=== PATIENT | female | born 1990 | race Two or more races ===

== ENCOUNTER 2020-10-06 09:09 | Emergency (ER) | payer OTHER ==
[~2020-10-06] VITALS: Ht 152.4 cm; Wt 81.6 kg
[2020-10-06] MEDS ORDERED: SODIUM CHLORIDE 0.9% 1,000 ML IV ONE ×2 (09:30)
[2020-10-06 09:54] LABS: Basophils # (auto) 0.1 10 ^3/uL (0-0.2); Basophils % (auto) 1.3 % (0.0-2.0); Eosinophils # (auto) 0.3 10 ^3/uL (0-0.8); Eosinophils % (auto) 3.2 % (0.0-7.0); Hematocrit 42.3 % (36.0-46.0); Hemoglobin 14.4 g/dL (12.2-16.2); Lymphocytes # (auto) 2.9 10 ^3/uL (0.4-5.4); Lymphocytes % (auto) 30.9 % (10.0-50.0); Mean Corpuscular Hemoglobin 29.1 pg (28.0-32.0); Mean Corpuscular Volume 85.5 fL (80.0-100.0); Monocytes # (auto) 0.5 10 ^3/uL (0-1.3); Neutrophils # (auto) 5.6 10 ^3/uL (1.6-8.6); Neutrophils % (auto) 59.6 % (37.0-80.0); Red Blood Cells 4.94 10^6/uL (4.0-5.20); Red Cell Distribution Width 12.6 % (11.8-14.3); White Blood Cell 9.4 10^3/uL (4.4-10.8)
[2020-10-06 10:17] LABS: Albumin 3.6 g/dL (3.4-5.0); Calcium 8.7 mg/dL (8.5-10.1)
[2020-10-06 10:20] LABS: BUN/Creatinine Ratio 16.9; Bilirubin, Total 0.6 mg/dL (0.2-1.0); Total Protein 7.4 g/dL (6.4-8.2)
[2020-10-06 10:29] LABS: Urine Bacteria FEW /hpf (None Seen); Urine Blood TRACE /uL (Negative); Urine Mucus FEW (None Seen); Urine Specific Gravity 1.021 (1.001-1.035); Urine WBC 8 /hpf (0 - 5)
[2020-10-06 12:50] VITALS: BP 129/75
== END 2020-10-06 13:06 | disposition home or self-care (01) ==
LOC: ER 09:09
DX: N39.0 Urinary tract infection, site not specified (principal); F17.210 Nicotine dependence, cigarettes, uncomplicated; Z90.49 Acquired absence of other specified parts of digestive tract
CPT/HCPCS: 36415; 74176; 80053; 81001; 83690; 85025

== ENCOUNTER 2022-02-13 17:08 | Emergency (ER) | payer OTHER, MEDICAID ==
[~2022-02-13] VITALS: Ht 152.4 cm; Wt 87.3 kg
[2022-02-13 18:42] LABS: Basophils # (auto) 0.1 10 ^3/uL (0-0.2); Basophils % (auto) 0.7 % (0.0-2.0); Eosinophils # (auto) 0.2 10 ^3/uL (0-0.8); Eosinophils % (auto) 2.1 % (0.0-7.0); Hematocrit 38.8 % (36.0-46.0); Hemoglobin 13.1 g/dL (12.2-16.2); Lymphocytes # (auto) 3.8 10 ^3/uL (0.4-5.4); Lymphocytes % (auto) 32.3 % (10.0-50.0); Mean Corpuscular Hemoglobin 28.1 pg (28.0-32.0); Mean Corpuscular Hgb Conc. 33.6 g/dL (32.0-36.0); Mean Corpuscular Volume 83.4 fL (80.0-100.0); Monocytes # (auto) 0.6 10 ^3/uL (0-1.3); Monocytes % (auto) 5.4 % (0.0-12.0); Neutrophils # (auto) 7.1 10 ^3/uL (1.6-8.6); Neutrophils % (auto) 59.5 % (37.0-80.0); Red Blood Cells 4.65 10^6/uL (4.0-5.20); Red Cell Distribution Width 13.5 % (11.8-14.3); White Blood Cell 11.9 10^3/uL (4.4-10.8)
[2022-02-13 19:01] LABS: Albumin 3.5 g/dL (3.4-5.0); BUN/Creatinine Ratio 15.7; Calcium 8.1 mg/dL (8.5-10.1); Magnesium 1.9 mg/dL (1.6-2.6); Potassium 3.8 mmol/L (3.5-5.1)
[2022-02-13 19:03] LABS: Bilirubin, Total 0.6 mg/dL (0.2-1.0); Total Protein 6.5 g/dL (6.4-8.2)
[2022-02-13] MEDS ORDERED: OXYCODONE W/ ACETAMINOPHEN 5/325MG TABLET PO ONE (23:30)
[2022-02-13] MEDS ORDERED: ONDANSETRON ODT 4 MG TAB PO ONE (23:30)
[2022-02-14 00:01] LABS: Alcohol, Urine < 3.0 mg/dL (0-10); Amphetamine Screen, Urine NEGATIVE (NEGATIVE); Barbiturate Scree,Urine NEGATIVE (NEGATIVE); Benzodiazephine Screen, Urine NEGATIVE (NEGATIVE); Cocaine Screen, Urine NEGATIVE (NEGATIVE); Opiate Scree,Urine NEGATIVE (NEGATIVE); Phencyclidine Screen, Urine NEGATIVE (NEGATIVE)
[2022-02-14 00:09] LABS: Cannabinoid Screen, Urine POSITIVE (NEGATIVE)
[2022-02-14 00:12] LABS: Urine Bacteria NONE SEEN /hpf (None Seen); Urine Blood Negative /uL (Negative); Urine Mucus FEW (None Seen); Urine Specific Gravity 1.031 (1.001-1.035); Urine WBC 5 /hpf (0 - 5)
[2022-02-14] MEDS ORDERED: ONDANSETRON HCL 4 MG/2 ML VIAL IV ONE ×2 (05:00→09:45)
[2022-02-14] MEDS ORDERED: HYDROmorphone HCL 2 MG/ML VL/or syr IV ONE ×2 (05:00→09:45)
[2022-02-14] MEDS ORDERED: GADOTERATE MEG 10 MMOL/20ml INJ (0.5MMOL/ml) IV ONE (10:04)
[2022-02-14] MEDS ORDERED: DICL50TA2 PO (19:24)
[2022-02-14] MEDS ORDERED: HYDR-4902 PO (19:24)
[2022-02-14 19:42] VITALS: BP 112/69
== END 2022-02-14 19:55 | disposition home or self-care (01) ==
LOC: ER 17:12
DX: G45.9 Transient cerebral ischemic attack, unspecified (principal); R51.9 Headache, unspecified; F17.210 Nicotine dependence, cigarettes, uncomplicated; Z90.49 Acquired absence of other specified parts of digestive tract; Z20.822 Contact with and (suspected) exposure to COVID-19
CPT/HCPCS: 36415; 70450; 70553; 71045; 80053; 80307; 81001; 83735; 84484; 85025; 87426; 93005; 96374; 96375; 96376; 99285; A9575; J1170; J2405; Q0162

== ENCOUNTER 2024-04-13 22:23 | Emergency (ER) | payer OTHER, MEDICAID ==
[~2024-04-13] VITALS: Ht 152.4 cm; Wt 67.7 kg
[~2024-04-13 22:23] MED LIST: DICL50TA2 PO; HYDR-4902 PO
[2024-04-13 23:03] LABS: Basophils # (auto) 0 10 ^3/uL (0-0.2); Basophils % (auto) 0.5 % (0.0-2.0); Eosinophils # (auto) 0.2 10 ^3/uL (0-0.8); Eosinophils % (auto) 2.8 % (0.0-7.0); Hemoglobin 12.6 g/dL (12.2-16.2); Lymphocytes # (auto) 3.2 10 ^3/uL (0.4-5.4); Lymphocytes % (auto) 47.6 % (10.0-50.0); Mean Corpuscular Hemoglobin 29.1 pg (28.0-32.0); Mean Corpuscular Hgb Conc. 34.2 g/dL (32.0-36.0); Mean Corpuscular Volume 85.2 fL (80.0-100.0); Monocytes # (auto) 0.7 10 ^3/uL (0-1.3); Monocytes % (auto) 10.1 % (0.0-12.0); Neutrophils # (auto) 2.6 10 ^3/uL (1.6-8.6); Nucleated Red Blood Cells % 0.1 %; Platelet Count (auto) 285 10^3/uL (140-450); Red Blood Cells 4.34 10^6/uL (4.0-5.20); Red Cell Distribution Width 14.9 % (11.8-14.3); White Blood Cell 6.8 10^3/uL (4.4-10.8)
[2024-04-13 23:12] LABS: Chloride 107 mmol/L (98-107); Potassium 2.9 mmol/L (3.5-5.1); Sodium 141 mmol/L (136-145)
[2024-04-13 23:14] LABS: Anion Gap 9 (5-15); Calcium 9.3 mg/dL (8.7-10.4); Carbon Dioxide 25 mmol/L (20-31)
[2024-04-13 23:18] LABS: INR 1.03 (0.9-1.15); Partial Thromboplastin Time 28.2 SEC (24.5-34.5); Prothrombin Time 10.9 sec (9.3-11.8)
[2024-04-13 23:19] LABS: BUN/Creatinine Ratio 13.8 (10.0-20.0); Blood Urea Nitrogen 8 mg/dL (9-23); Glucose 91 mg/dL (74-106)
--- NOTE | 2024-04-13 23:21 | DVH ---
CHEST RADIOGRAPH Indication: CP Technique: Single frontal view of the chest was obtained COMPARISON: CHEST XRAY 1 VIEW on DOS: 02/13/22 FINDINGS: Lines and Tubes: None Lungs: Clear Pleura: No effusion. No pneumothorax. Cardiomediastinal contours: Unremarkable Bones: Unremarkable IMPRESSION: 1. No acute disease.
--- NOTE | 2024-04-14 00:51 | ED.PDOC ---
History of Present Illness HPI Comments 33 y/o F, with a Hx of cholecystectomy, , gastric bypass Sx and tobacco and EtOH use, presents with c/o non-radiating, chest pressure, shortness of breath, dizziness, lightheadedness, fatigue, hypotension and bradycardia for 1 week. Patient states she was seen at urgent care for these symptoms today and was referred to the emergency room due to bradycardia as low as 50. Patient states she has been recording her heart rate at home and at has been in the low 50s consistently. She also notes a severe headache and states she has a history of a brain lesion incidentally found on imaging a year ago. She denies any syncope, vision changes or focal weakness. Chief Complaint: Chest Pain Time Seen by MD: 00:20 Primary Care Provider: Dr. Dougherty Reviewed Notes: Nurses Notes, Medications, Allergies Allergies: Coded Allergies: NO KNOWN ALLERGIES (Unverified , 10/06/20) Home Meds Active Scripts Diclofenac Potassium (Diclofenac Potassium) 50 Mg Tab, 1 TAB PO TIDP for 10 Days, #30 TAB Prov:JESSY CLAUDIO MD 02/14/22 Hydrocodone-Acetaminophen (Hydrocodone Bitartrate/AC 5-325 mg) 1 Tab Tab, 1 TAB PO TID for 5 Days, #15 TAB Prov:JESSY CLAUDIO MD 02/14/22 Information Source: Patient Mode of Arrival: Ambulatory Severity: Moderate Timing: Weeks Duration: Since onset Prehospital treatment: None Past Medical History PAST MEDICAL HISTORY: Denies Surgical History: Cholecystectomy, Surgical History (Other): gastric bypass Sx GROUND SUPPORT EQUIPMENT FITTER History: No Pertinent GROUND SUPPORT EQUIPMENT FITTER History Family History Family History: Reviewed,noncontributory to illness Social History Smoker: Cigarettes Alcohol: Occasionally Drugs: Denies Drug Use Lives In: Home Constitutional: reports: fatigue; denies: chills, diaphoresis, fever, malaise, sweats, weakness, others EENTM: denies: blurred vision, double vision, ear bleeding, ear discharge, ear drainage, ear pain, ear ringing, eye pain, eye redness, hearing loss, mouth pain, mouth swelling, nasal discharge, nose bleeding, nose congestion, nose pain, photophobia, tearing, throat pain, throat swelling, voice changes, others Respiratory: reports: shortness of breath; denies: cough, hemoptysis, orthopnea, SOB at rest, SOB with excertion, stridor, wheezing, others Cardiovascular: reports: chest pain, irregular heart beat, lightheadedness, others (hypotension ) Gastrointestinal: denies: abdomen distended, abdominal pain, blood streaked bowels, constipated, diarrhea, dysphagia, difficulty swallowing, hematemesis, melena, nausea, poor appetite, poor fluid intake, rectal bleeding, rectal pain, vomiting, others Genitourinary: denies: abnormal vagina bleeding, burning, dyspareunia, dysuria, flank pain, frequency, hematuria, incontinence, pain, , vagina discharge, urgency, others Neurological: denies: dizziness, fainting, headache, left sided numbness, left sided weakness, numbness, paresthesia, pre-existing deficit, right sided numbness, right sided weakness, seizure, speech problems, tingling, tremors, we akness, others Musculoskeletal: denies: back pain, gout, joint pain, joint swelling, muscle pain, muscle stiffness, neck pain, others Integumetry: denies: bruises, change in color, change in hair/nails, dryness, laceration, lesions, lumps, rash, wounds, others Allergic/Immunocompromised: denies: Difficulty Healing, Frequent Infections, Hives, Itching, others Hematologic/Lymphatic: denies: anemia, blood clots, easy bleeding, easy bruising, swollen glands, others Endocrine: denies: excessive hunger, excessive sweating, excessive thirst, excessive urination, flushing, intolerance to cold, intolerance to heat, unexplained weight gain, unexplained weight loss, others Psychiatric: denies: anxiety, bipolar disorder, depression, hopeless, panic disorder, schizophrenia, sleepless, suicidal, others All Other Systems: Reviewed and Negative Physical Exam General Appearance: No Apparent Distress HEENT: Normal ENT Inspection, PERRL/EOMI Neck: Full Range of Motion, Normal Inspection Respiratory: Lungs Clear, No Accessory Muscle Use, No Respiratory Distress, Normal Breath Sounds Cardiovascular: Bradycardia, No Edema, No JVD Breast Exam: Deferred Gastrointestinal: Non Tender, Soft Genitalia: Deferred Pelvic: Deferred Rectal: Deferred Extremities: Normal inspection, Normal range of motion, Non-tender, No pedal edema Neurologic: Alert, No Motor Deficits, Normal Affect, Normal Mood, No Sensory Deficits Cerebellar Function: NOT DONE Reflexes: NOT DONE Skin: Dry, Normal Color, Warm Lymphatic: NOT DONE Was a procedure done? Was a procedure done?: No EKG EKG : Comments Sinus bradycardia, rate 49, normal intervals, normal axis, normal QRS, nonspecific T change. Differential Dx Considerations may include: ACS, TX, arrhythmia, hypovolemia, anemia, electrolyte imbalance, tension headache, migraine headache, vascular headache, metabolic headache, intracranial lesion, among others X-Ray, Labs, Meds, VS Vital Signs Date Time Temp Pulse Resp B/P (MAP) Pulse Ox O2 Delivery O2 Flow Rate FiO2 04/14/24 05:00 98.0 54 16 114/76 (89) 100 98.0 04/13/24 22:34 49 04/13/24 22:28 97.9 49 20 131/84 (100) 100 Lab Test 04/13/24 23:43 04/13/24 22:40 Range/Units Troponin I High Sensitivity < 3 L < 3 L </=34 ng/L White Blood Count 6.8 4.4-10.8 10^3/uL Red Blood Count 4.34 4.0-5.20 10^6/uL Hemoglobin 12.6 12.2-16.2 g/dL Hematocrit 37.0 36.0-46.0 % Mean Corpuscular Volume 85.2 80.0-100.0 fL Mean Corpuscular Hemoglobin 29.1 28.0-32.0 pg Mean Corpuscular Hemoglobin Concent 34.2 32.0-36.0 g/dL Red Cell Distribution Width 14.9 H 11.8-14.3 % Platelet Count 285 140-450 10^3/uL Mean Platelet Volume 7.0 6.9-10.8 fL Neutrophils (%) (Auto) 39.0 37.0-80.0 % Lymphocytes (%) (Auto) 47.6 10.0-50.0 % Monocytes (%) (Auto) 10.1 0.0-12.0 % Eosinophils (%) (Auto) 2.8 0.0-7.0 % Basophils (%) (Auto) 0.5 0.0-2.0 % Neutrophils # (Auto) 2.6 1.6-8.6 10 ^3/uL Lymphocytes # (Auto) 3.2 0.4-5.4 10 ^3/uL Monocytes # (Auto) 0.7 0-1.3 10 ^3/uL Eosinophils # (Auto) 0.2 0-0.8 10 ^3/uL Basophils # (Auto) 0 0-0.2 10 ^3/uL Nucleated Red Blood Cells 0.1 % Prothrombin Time 10.9 9.3-11.8 sec Prothrombin Time INR 1.03 0.9-1.15 Activated Partial Thromboplast Time 28.2 24.5-34.5 SEC Sodium Level 141 136-145 mmol/L Potassium Level 2.9 L 3.5-5.1 mmol/L Chloride Level 107 98-107 mmol/L Carbon Dioxide Level 25 20-31 mmol/L Anion Gap 9 5-15 Blood Urea Nitrogen 8 L 9-23 mg/dL Creatinine 0.58 0.550-1.02 mg/dL Glomerular Filtration Rate Calc 121 >90 mL/min BUN/Creatinine Ratio 13.8 10.0-20.0 Serum Glucose 91 74-106 mg/dL Calcium Level 9.3 8.7-10.4 mg/dL Magnesium Level 2.0 1.6-2.6 mg/dL B-Type Natriuretic Peptide 32.51 0-100 pg/mL [place] [address] Ph: [phone] DIAGNOSTIC IMAGING Diagnostic Imaging Report : [id number] Signed PATIENT: EDWARDO MEDINA ACCT: [id number] UNIT: [id number] : 1990 LOC: ER ROOM / BED: / AGE / SEX: 33 / F ADM STATUS: REG ER SERVICE 0050 ORDERING PHYSICIAN: CATHERINE LEE MD PROCEDURE(s): HWOCT - HEAD WITHOUT CONTRAST REASON: headache, gen weak, presyncope ORDER NUMBER(s): [id number], ACCESSION NUMBER(s): [id number] EXAM: CT HEAD WITHOUT CONTRAST INDICATION: headache, gen weak, presyncope TECHNIQUE: CT of the head without intravenous contrast. Radiation Dose : 1. Head: CT Dose: CTDI volume is 53.92 mGy. Dose-length product is 756.59 mGy*cm The dose indicators for CT are the volume Computed Tomography (CT) Dose Index (CTDIvol) and the Dose Length Product (DLP), and are measured in units of mGy and mGy-cm, respectively. These indicators are not patient dose, but values generated from the CT scanner acquisition factors. The report includes radiation exposure data for exposures received during this examination. COMPARISON: BRAIN HEAD WO W CONTRAST on DOS: 02/14/22, HEAD WITHOUT CONTRAST on DOS: 02/13/22, CT ABD PELVIS WO CONTRAST on DOS: 10/06/20 FINDINGS: 1.7 cm ovoid shaped masslike lesion is seen in the medial left frontal brain which may reflect mass or intraparenchymal hematoma. No significant mass effect. No midline shift. The ventricles, sulci and cisterns are age appropriate. The szymanski-white differentiation is intact. Patchy periventricular and subcortical white matter hypoattenuation is nonspecific but may be related to small vessel ischemic disease. The visualized paranasal sinuses and mastoid air cells are clear. The surrounding soft tissues and osseous structures are unremarkable. IMPRESSION: 1. 1.7 cm ovoid shaped masslike lesion is seen in the medial left frontal brain which may reflect mass or intraparenchymal hematoma. Recommend MRI brain for further characterization. 2. No significant mass effect or midline shift. Radiation optimization: All CT scans at this facility use at least one of these dose optimization techniques: automated exposure control mA and/or kV adjustment per patient size (includes targeted exams where dose is matched to clinical indication) or iterative reconstruction. ATED BY: MAGDALENA CRAMER MD DICTATED DATE/TIME: 04/14/24118 SIGNED BY: MAGDALENA CRAMER MD SIGNED DATE/TIME: 04/14/24118 CC: X-Ray, Labs, Meds, VS Comment 33 y/o F with Hx of cholecystectomy, , gastric bypass and a brain mass incidentally found on imaging a year ago referred by urgent care for chest pain, fatigue, near-syncope and bradycardia. Patient also reports a severe, pressure- like headache. Vitals remarkable for heart rate 49 Exam unremarkable EKG sinus bradycardia, rate 49, nonspecific T changes Chest x-ray unremarkable Head CT: IMPRESSION: 1. 1.7 cm ovoid shaped masslike lesion is seen in the medial left frontal brain which may reflect mass or intraparenchymal hematoma. Recommend MRI brain for further characterization. 2. No significant mass effect or midline shift. CBC unremarkable, basic metabolic panel remarkable for potassium 2.9, no other abnormalities of acute significance BNP and serial troponins negative Patient treated with the following in the ED: 1 L 0.9 normal saline IV bolus, KCl 50 mEq p.o., K rider 20 mEq IV, Tylenol 1 g p.o. On re-evaluation, headache had improved, vitals were stable except for persistent bradycardia, no focal neurologic deficit on exam Plan is to transfer the patient for higher level of care (neurosurgical evaluation). Patient will also require Cardiology evaluation for symptomatic bradycardia. Case discussed with Dr. Browne at [facility], agreed to accept the patient. Time of 1ST Reevaluation: 00:50 Reevaluation 1ST: Unchanged Time of 2ND Reevaluation: 03:44 Reevaluation 2ND: Improved Patient Education/Counseling: Diagnosis, Treatment Family Education/Counseling: No Family Present Departure 1 Departure Time of Disposition: 03:44 Impression: Primary Impression: Symptomatic bradycardia Additional Impressions: Brain mass Hypokalemia Disposition: 02 SHORT TERM HOSPITAL Admit to: [facility] Condition: Guarded Critical Care Note Critical Care Time?: No Stability Stability form required: No Heart Score Heart Score: Heart Score Response (Comments) Value History Moderate Suspicious 1 EKG Repolarization Disturb 1 Age <45 0 Risk Factors No known risk factors 0 Troponin Normal limit 0 Total 2 I personally scribed for CATHERINE LEE MD ([email or web address]) on 04/14/24 at 00:51. Electronically submitted by Prince Lopez ([email or web address]). I personally scribed for CATHERINE LEE MD ([email or web address]) on 04/14/24 at 01:09. Electronically submitted by Prince Lopez ([email or web address]). I personally scribed for CATHERINE LEE MD ([email or web address]) on 04/14/24 at 02:08. Electronically submitted by Prince Lopez ([email or web address]). CATHERINE ELE MD Apr 14, 2024 00:51
--- NOTE | 2024-04-14 01:22 | DVH ---
EXAM: CT HEAD WITHOUT CONTRAST INDICATION: headache, gen weak, presyncope TECHNIQUE: CT of the head without intravenous contrast. Radiation Dose : 1. Head: CT Dose: CTDI volume is 53.92 mGy. Dose-length product is 756.59 mGy*cm The dose indicators for CT are the volume Computed Tomography (CT) Dose Index (CTDIvol) and the Dose Length Product (DLP), and are measured in units of mGy and mGy-cm, respectively. These indicators are not patient dose, but values generated from the CT scanner acquisition factors. The report includes radiation exposure data for exposures received during this examination. COMPARISON: BRAIN HEAD WO W CONTRAST on DOS: 02/14/22, HEAD WITHOUT CONTRAST on DOS: 02/13/22, CT ABD P GUILLERMO WO CONTRAST on DOS: 10/06/20 FINDINGS: 1.7 cm ovoid shaped masslike lesion is seen in the medial left frontal brain which may reflect mass o r intraparenchymal hematoma. No significant mass effect. No midline shift. The ventricles, sulci and cisterns are age appropriate. The szymanski-white differentiation is intact. Patchy periventricular and subcortical white matter hypoattenuation is nonspecific but may be related to small vessel ischemic disease. The visualized paranasal sinuses and mastoid air cells are clear. The surrounding soft tissues and osseous structures are unremarkable. IMPRESSION: 1. 1.7 cm ovoid shaped masslike lesion is seen in the medial left frontal brain which may reflect mas s or intraparenchymal hematoma. Recommend MRI brain for further characterization. 2. No significant mass effect or midline shift. Radiation optimization: All CT scans at this facility use at least one of these dose optimization tomas hniques: automated exposure control mA and/or kV adjustment per patient size (includes targeted exam s where dose is matched to clinical indication) or iterative reconstruction.
--- NOTE | 2024-04-14 02:11 | ECG ---
[facility] Test Date: 2024-04-13 Test Time: 22:34:12 Pat Name: EDWARDO MEDINA Department: ER Room: Gender: F Internal Medicine Veterinary Technician: BOO : 1990 Requested By: CATHERINE DECKER Order Number: [id number] Reading MD: Measurements Intervals [place] Rate: 49 P: -35 [place]: 149 QRS: 8 QRSD: 117 T: 14 QT: 496 QTc: 448 Interpretive Statements Sinus bradycardia Nonspecific intraventricular conduction delay Nonspecific T abnormalities, anterior leads Baseline wander in lead(s) V4,V5,V6 Please click the below link to view image of tracing.
[2024-04-14 06:37] VITALS: PULSE 50; RESP 18; O2SAT 100
[2024-04-14] MEDS: ACETAMINOPHEN 500 MG TAB PO ONE (06:37)
[2024-04-14] MEDS: SODIUM CHLORIDE 0.9% 1,000 ML IV ONE (06:37)
[2024-04-14] MEDS: POTASSIUM EFFERVESENT TAB 25 MEQ PO ONE (06:37)
[2024-04-14] MEDS: POTASSIUM CHL 20MEQ/100ML 100 ML IV ONE (06:38)
[2024-04-14 08:05] LABS: Urine Bacteria None Seen /hpf (None Seen)
[2024-04-14 08:28] LABS: Urine Blood Negative /uL (Negative); Urine Clarity Turbid (Clear); Urine Color Light-Yellow (Yellow); Urine Protein, UAD Negative (Negative); Urine Specific Gravity 1.011 (1.001-1.035); Urine Urobilinogen Normal (Negative); Urine WBC 1 /hpf (0 - 5)
--- NOTE | 2024-04-14 09:23 | ECG ---
[facility] Test Date: 2024-04-14 Test Time: 07:54:48 Pat Name: EDWARDO MEDINA Department: ER Room: Gender: F Four Slide Operator: WERO : 1990 Requested By: CATHERINE DECKER Order Number: [id number] Reading MD: Measurements Intervals [place] Rate: 45 P: 0 [place]: 125 QRS: 62 QRSD: 115 T: 21 QT: 494 QTc: 428 Interpretive Statements Sinus bradycardia Nonspecific intraventricular conduction delay Low voltage, precordial leads Please click the below link to view image of tracing.
[2024-04-14 10:00] VITALS: BP 108/76; PULSE 47; RESP 23; TEMP 98.1; O2SAT 100
== END 2024-04-14 06:14 | disposition short-term general hospital (02) ==
LOC: ER 22:23
DX: R00.1 Bradycardia, unspecified (principal); G93.9 Disorder of brain, unspecified; E87.6 Hypokalemia; F17.210 Nicotine dependence, cigarettes, uncomplicated; Z90.49 Acquired absence of other specified parts of digestive tract; Z98.890 Other specified postprocedural states
CPT/HCPCS: 36415; 70450; 71045; 80048; 81001; 81025; 83735; 83880; 84484; 85025; 85610; 85730; 87086; 93005; 96365; 96366; 99285; J3480; J7030

== ENCOUNTER 2024-10-18 11:13 | Emergency (ER) | payer OTHER, MEDICAID ==
[~2024-10-18] VITALS: Ht 165.1 cm; Wt 65.0 kg
--- NOTE | 2024-10-18 11:22 | ED.PDOC ---
History of Present Illness HPI Comments 34 y.o female presents to the ED via EMS for an evaluation of ETOH withdrawals. Patient stopped drinking 5 days ago and since has been experiencing fluctuating blood pressure readings, chest pain, SOB, diarrhea, chills, and anxiety. Patient denies any nausea, vomiting, fever, suicidal or homicidal ideation. Patient also reports use of tobacco via vaping. Time Seen by MD: 11:12 Primary Care Provider: Dr. Dougherty Reviewed Notes: Nurses Notes, Medications, Allergies Allergies: Coded Allergies: NO KNOWN ALLERGIES (Unverified , 10/06/20) Home Meds Active Scripts Ondansetron Odt 4MG Tab (ZOFRAN PO) 4 Mg Tb, 4 MG PO Q8HP PRN for 5 Days, #15 TAB ODT TAB-DISSOLVE IN MOUTH, THEN SWALLOW Prov:NICOLE RANGEL MD 10/18/24 Chlordiazepoxide Hcl (Ni-1) (I (Librium) 10 Mg Cap, 10 MG PO BID for 5 Days, #10 CAP Prov:NICOLE RANGEL MD 10/18/24 Diclofenac Potassium (Diclofenac Potassium) 50 Mg Tab, 1 TAB PO TIDP for 10 Days, #30 TAB Prov:JESSY CLAUDIO MD 02/14/22 Hydrocodone-Acetaminophen (Hydrocodone Bitartrate/AC 5-325 mg) 1 Tab Tab, 1 TAB PO TID for 5 Days, #15 TAB Prov:JESSY CLAUDIO MD 02/14/22 Information Source: Patient, Emergency Med Personnel Mode of Arrival: EMS Severity: Moderate Timing: Days (5) Duration: Since onset Past Medical History PAST MEDICAL HISTORY: Denies Surgical History: Cholecystectomy, PSYCH COORDINATOR History: No Pertinent PSYCH COORDINATOR History Family History Family History: Family hx of DM Social History Smoker: Cigarettes Alcohol: Heavy Drugs: Denies Drug Use Lives In: Home Constitutional: reports: chills; denies: diaphoresis, fatigue, fever, malaise, sweats, weakness, others EENTM: denies: blurred vision, double vision, ear bleeding, ear discharge, ear drainage, ear pain, ear ringing, eye pain, eye redness, hearing loss, mouth pain, mouth swelling, nasal discharge, nose bleeding, nose congestion, nose pain, photophobia, tearing, throat pain, throat swelling, voice changes, others Respiratory: reports: SOB at rest, shortness of breath; denies: cough, hemoptysis, orthopnea, SOB with excertion, stridor, wheezing, others Cardiovascular: reports: chest pain; denies: dizzy spells, diaphoresis, Dyspnea on exertion, edema, irregular heart beat, left arm pain, lightheadedness, palpitations, PND, syncope, others Gastrointestinal: denies: abdomen distended, abdominal pain, blood streaked bowels, constipated, diarrhea, dysphagia, difficulty swallowing, hematemesis, melena, nausea, poor appetite, poor fluid intake, rectal bleeding, rectal pain, vomiting, others Genitourinary: denies: abnormal vagina bleeding, burning, dyspareunia, dysuria, flank pain, frequency, hematuria, incontinence, pain, , vagina discharge, urgency, others Neurological: denies: dizziness, fainting, headache, left sided numbness, left sided weakness, numbness, paresthesia, pre-existing deficit, right sided numbness, right sided weakness, seizure, speech problems, tingling, tremors, weakness, others Musculoskeletal: denies: back pain, gout, joint pain, joint swelling, muscle pain, muscle stiffness, neck pain, others Integumetry: denies: bruises, change in color, change in hair/nails, dryness, laceration, lesions, lumps, rash, wounds, others Allergic/Immunocompromised: denies: Difficulty Healing, Frequent Infections, Hives, Itching, others Hematologic/Lymphatic: denies: anemia, blood clots, easy bleeding, easy bruising, swollen glands, others Endocrine: denies: excessive hunger, excessive sweating, excessive thirst, excessive urination, flushing, intolerance to cold, intolerance to heat, unexplained weight gain, unexplained weight loss, others Psychiatric: reports: anxiety; denies: bipolar disorder, depression, hopeless, panic disorder, schizophrenia, sleepless, suicidal, others All Other Systems: Reviewed and Negative Physical Exam General Appearance: Mild Distress, Other (The patient exhibiting signs of anxiety) HEENT: Normal ENT Inspection, Pharynx Normal, TMs Normal Neck: Full Range of Motion, Non-Tender, Normal, Normal Inspection Respiratory: Chest Non-Tender, Lungs Clear, No Accessory Muscle Use, No Respiratory Distress, Normal Breath Sounds Cardiovascular: No Edema, No JVD, No Murmur, No Gallop, Normal Peripheral Pulses, Regular Rate/Rhythm Breast Exam: Deferred Gastrointestinal: No Organomegaly, Non Tender, No Pulsatile Mass, Normal Bowel Sounds, Soft Genitalia: Deferred Pelvic: Deferred Rectal: Deferred Extremities: No calf tenderness, Normal capillary refill, Normal inspection, Normal range of motion, Non-tender, No pedal edema Musculoskeletal : Apperance: Normal Neurologic: Alert, handyman II-XII nml as Tested, No Motor Deficits, No Sensory Deficits, Other (Anxiety) Cerebellar Function: Normal Reflexes: Normal Skin: Dry, Normal Color, Warm Lymphatic: No Adenopathy Was a procedure done? Was a procedure done?: No EKG EKG : Pulse Rate (adult): 57 [place]: Normal Cardiac Rhythm: NSR Block: None ST: Nonsp Differential Dx Considerations may include: ETOH withdrawals, Dehydration, Anxiety, Angina, Hypokalemia, hypomagnesium, Alcoholic ketoacidosis, thiamine deficiency X-Ray, Labs, Meds, VS Vital Signs Date Time Temp Pulse Resp B/P (MAP) Pulse Ox O2 Delivery O2 Flow Rate FiO2 10/18/24 12:05 57 10/18/24 11:34 57 10/18/24 11:22 97.9 60 22 121/79 (93) 99 97.9 Lab Test 10/18/24 11:28 Range/Units White Blood Count 9.5 4.4-10.8 10^3/uL Red Blood Count 4.71 4.0-5.20 10^6/uL Hemoglobin 13.0 12.2-16.2 g/dL Hematocrit 38.8 36.0-46.0 % Mean Corpuscular Volume 82.4 80.0-100.0 fL Mean Corpuscular Hemoglobin 27.5 L 28.0-32.0 pg Mean Corpuscular Hemoglobin Concent 33.4 32.0-36.0 g/dL Red Cell Distribution Width 17.5 H 11.8-14.3 % Platelet Count 478 H 140-450 10^3/uL Mean Platelet Volume 6.4 L 6.9-10.8 fL Neutrophils (%) (Auto) 66.0 37.0-80.0 % Lymphocytes (%) (Auto) 26.1 10.0-50.0 % Monocytes (%) (Auto) 6.4 0.0-12.0 % Eosinophils (%) (Auto) 0.6 0.0-7.0 % Basophils (%) (Auto) 0.9 0.0-2.0 % Neutrophils # (Auto) 6.3 1.6-8.6 10 ^3/uL Lymphocytes # (Auto) 2.5 0.4-5.4 10 ^3/uL Monocytes # (Auto) 0.6 0-1.3 10 ^3/uL Eosinophils # (Auto) 0.1 0-0.8 10 ^3/uL Basophils # (Auto) 0.1 0-0.2 10 ^3/uL Nucleated Red Blood Cells 0.0 % Sodium Level 139 136-145 mmol/L Potassium Level 3.2 L 3.5-5.1 mmol/L Chloride Level 104 98-107 mmol/L Carbon Dioxide Level 22 20-31 mmol/L Anion Gap 13 5-15 Blood Urea Nitrogen 10 9-23 mg/dL Creatinine 0.63 0.550-1.02 mg/dL Glomerular Filtration Rate Calc 118 >90 mL/min BUN/Creatinine Ratio 15.9 10.0-20.0 Serum Glucose 99 74-106 mg/dL Calcium Level 9.7 8.7-10.4 mg/dL Plasma/Serum Blood Alcohol < 3.0 <10 mg/dL Current Medications Medications (Trade) Dose Ordered Sig/Gelacio Route Start Time Stop Time Status Last Admin Sodium Chloride 1,000 ml @ 1,000 mls/hr Q1H ONCE IV 10/18/24 11:30 10/18/24 12:29 DC 10/18/24 12:03 Lorazepam (Ativan Inj) 1 mg ONCE ONCE IV 10/18/24 11:30 10/18/24 11:31 DC 10/18/24 12:03 IV Hep-Lock was established The patient was given a 1 L bolus of normal saline The patient was given Ativan 1 mg IV push The patient states that she is feeling better after the Ativan that was given The CBC and chemistry panel are within normal limits The patient's anxiety has decreased significantly The patient was given a prescription of Librium and Zofran for the nausea and vomiting The patient will return to the emergency department's the condition worsens. The patient understands and agrees with the management. Time of 1ST Reevaluation: 11:22 Reevaluation 1ST: Unchanged Patient Education/Counseling: Diagnosis, Treatment, Prognosis, Need For Follow Up Family Education/Counseling: No Family Present Departure 1 Departure Time of Disposition: 12:39 Impression: Primary Impression: Acute anxiety Additional Impression: Alcohol withdrawal Qualified Codes: F10.930 - Alcohol use, unspecified with withdrawal, uncomplicated Disposition: HOME / SELF CARE / HOMELESS Condition: Fair e-Prescriptions Ondansetron Odt 4MG Tab (ZOFRAN PO) 4 Mg Tb 4 MG PO Q8HP PRN for 5 Days, #15 TAB ODT TAB-DISSOLVE IN MOUTH, THEN SWALLOW Prov: NICOLE RANGEL MD 10/18/24 Chlordiazepoxide Hcl (Ni-1) (I (Librium) 10 Mg Cap 10 MG PO BID for 5 Days, #10 CAP Prov: NICOLE RANGEL MD 10/18/24 Discharged With: Self Critical Care Note Critical Care Time?: No Stability Stability form required: No Heart Score Heart Score: Heart Score Response (Comments) Value History N/A 0 EKG N/A 0 Age <45 0 Risk Factors N/A 0 Troponin N/A 0 Total 0 I personally scribed for NICOLE RANGEL MD ([email or web address]) on 10/18/24 at 11:22. Electronically submitted by Tonya Beltrán (Quipper). I personally scribed for NICOLE RANGEL MD ([email or web address]) on 10/18/24 at 11:34. Electronically submitted by Tonya Beltrán (Quipper). NICOLE RANGEL MD October 18, 2024 11:22
--- NOTE | 2024-10-18 11:35 | ECG ---
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
[2024-10-18 11:36] LABS: Basophils # (auto) 0.1 10 ^3/uL (0-0.2); Basophils % (auto) 0.9 % (0.0-2.0); Eosinophils # (auto) 0.1 10 ^3/uL (0-0.8); Eosinophils % (auto) 0.6 % (0.0-7.0); Hematocrit 38.8 % (36.0-46.0); Lymphocytes # (auto) 2.5 10 ^3/uL (0.4-5.4); Lymphocytes % (auto) 26.1 % (10.0-50.0); Mean Corpuscular Hemoglobin 27.5 pg (28.0-32.0); Mean Corpuscular Hgb Conc. 33.4 g/dL (32.0-36.0); Mean Corpuscular Volume 82.4 fL (80.0-100.0); Monocytes # (auto) 0.6 10 ^3/uL (0-1.3); Monocytes % (auto) 6.4 % (0.0-12.0); Neutrophils # (auto) 6.3 10 ^3/uL (1.6-8.6); Platelet Count (auto) 478 10^3/uL (140-450); Red Blood Cells 4.71 10^6/uL (4.0-5.20); Red Cell Distribution Width 17.5 % (11.8-14.3); White Blood Cell 9.5 10^3/uL (4.4-10.8)
[2024-10-18 11:45] LABS: Chloride 104 mmol/L (98-107); Sodium 139 mmol/L (136-145)
[2024-10-18 11:46] LABS: Anion Gap 13 (5-15); Carbon Dioxide 22 mmol/L (20-31)
[2024-10-18 11:47] LABS: Calcium 9.7 mg/dL (8.7-10.4)
[2024-10-18 11:51] LABS: BUN/Creatinine Ratio 15.9 (10.0-20.0); Blood Urea Nitrogen 10 mg/dL (9-23); Glucose 99 mg/dL (74-106)
[2024-10-18 11:52] LABS: Blood Alcohol < 3.0 mg/dL (<10); Potassium 3.2 mmol/L (3.5-5.1)
[2024-10-18] MEDS: SODIUM CHLORIDE 0.9% 1,000 ML IV ONE (12:03)
[2024-10-18] MEDS: LORazepam 2MG/ML-1ML VIAL IV ONE (12:03)
[2024-10-18] MEDS ORDERED: ZOFR4T PO (12:37)
[2024-10-18] MEDS ORDERED: CHL10C PO (12:37)
[2024-10-18 14:12] VITALS: BP 117/64; PULSE 68; RESP 20; TEMP 99.5; O2SAT 99
== END 2024-10-18 14:23 | disposition home or self-care (01) ==
LOC: EDBD 11:13 → ER 11:13
DX: F10.239 Alcohol dependence with withdrawal, unspecified (principal); F41.9 Anxiety disorder, unspecified; F17.210 Nicotine dependence, cigarettes, uncomplicated; Z90.49 Acquired absence of other specified parts of digestive tract; Z98.890 Other specified postprocedural states; Z79.899 Other long term (current) drug therapy; Y90.0 Blood alcohol level of less than 20 mg/100 ml
CPT/HCPCS: 36415; 80048; 80320; 85025; 93005; 96361; 96374; 99284; J2060; J7030